=== PATIENT | male | born 1990 | race Caucasian/White ===

== ENCOUNTER 2017-11-12 13:00 | Emergency (ER) | payer OTHER ==
[~2017-11-12] VITALS: Ht 185.4 cm; Wt 95.8 kg
[2017-11-12 13:04] VITALS: Ht 185.4 cm; Wt 95.8 kg
[2017-11-12] MEDS ORDERED: CABE0.5T PO (13:39)
[2017-11-12] MEDS ORDERED: FLUC150T63 PO (13:39)
[2017-11-12 13:40] VITALS: BP 95/69; PULSE 70; TEMP 36.6; O2SAT 94
[2017-11-12] MEDS ORDERED: VALA1TAB2 PO (13:48)
[2017-11-12] MEDS ORDERED: HYDR-5688 PO (13:48)
--- NOTE | 2017-11-12 13:50 | EMERGENCY ROOM VISIT NOTE ---
History First contact with patient: 13:08 Chief Complaint: RASH Stated Complaint: SHINGLE LIKE SYMPTOMS,PAIN,TINGLING BLISTERS History of Present Illness The patient is a 27 year old male who presents to the Emergency Room with complaints of possible shingles. The patient reports he has had a rash in the left upper back across the left chest for the past week. He was seen by his primary care provider 2 days ago and given an antifungal cream. The patient states the rash is painful and rates the discomfort a 7/10. He states he has had shingles in the past and this feels similar to when he had shingles. He denies any fevers/chills, numbness or weakness. Review of Systems A complete 10 point review of systems was reviewed with the patient with pertinent positives and negatives as per history of present illness. All else were negative. Social History Smoking Status: Never Smoker Current/Historical Medications Scheduled Cabergoline (Cabergoline), 0.5 TAB PO 2XWK Fluconazole (Diflucan), 300 MG PO WK Valacyclovir Hcl (Valtrex), 1,000 MG PO TID Scheduled PRN Hydrocodone/Acetaminophen 5MG/325MG ([employer] 5MG/325MG), 1-2 TABLET PO Q4H PRN for Pain Physical Exam Vital Signs Date Time Temp Pulse Resp B/P (MAP) Pulse Ox O2 Delivery O2 Flow Rate FiO2 11/12/17 13:40 36.6 70 18 95/69 94 Room Air 11/12/17 13:04 36.6 78 16 137/80 96 Room Air Physical Exam VITALS: Vitals are noted on the nurse's note and reviewed by myself. Vital signs stable. GENERAL: This is a 27-year-old male, in no acute distress, nondiaphoretic, well- developed well-nourished. SKIN: There are multiple vesicular lesions over the left upper back, left underarm and left upper chest. The rash does not cross the midline. HEART: Regular rate and rhythm without murmurs gallops or rubs. LUNGS: Clear to auscultation bilaterally without wheezes, rales or rhonchi. NEURO: Patient was alert and oriented to person place and time. Medical Decision & Procedures Laboratory Results Test 11/12/17 13:25 Medical Decision Differential diagnosis includes herpes zoster, folliculitis, contact dermatitis , among others. The patient is a 27-year-old male who presents today complaining of possible shingles. The rash is consistent with shingles. Viral and bacterial cultures were obtained. The patient will be treated for herpes zoster with valacyclovir. Conservative measures were discussed. He was given a prescription for pain medication. He will follow-up with his primary care provider for further evaluation and to discuss culture results. The patient verbalized understanding of my assessment and treatment plan and was discharged home in good condition. Medication Reconcilliation Current Medication List: was personally reviewed by me Blood Pressure Screening Patient's blood pressure: Normal blood pressure Impression Primary Impression: Herpes zoster Departure Information Dispostion Home / Self-Care Condition GOOD Prescriptions Hydrocodone/Acetaminophen 5MG/325MG ([employer] 5MG/325MG) Tab 1-2 TABLET PO Q4H Y for Pain, #15 TAB For Initial Treatment Prov: Mariana Elizalde PA-C 11/12/17 Valacyclovir Hcl (VALTREX) 1 Gm Tab 1000 MG PO TID for 7 Days, #21 TAB Prov: Mariana Elizalde PA-C 11/12/17 Referrals Divine Polanco M.D. (PCP) Patient Instructions My [facility] Additional Instructions Valtrex as prescribed. This is an antiviral medication that will help with the rash. For pain control, you can use the following [id number] medicines (if >12 yo): - Regular strength (325mg/tab) Tylenol (acetaminophen) 2 tabs every 4-6 hours as needed. Do not exceed 12 tablets in a 24 hour period. Avoid taking more than 4 grams (4000 mg) of Tylenol per day. This includes any other sources of acetaminophen you may take on a regular basis. - Regular strength (200 mg/tab) Advil (ibuprofen) 1-2 tabs every 4-6 hours as needed. Do not exceed a dose of 3200 mg per day. You have been prescribed [employer] to be used for pain control. Take 1-2 tablets every 4-6 hours as needed for pain. This is a narcotic medication. You cannot drive or consume alcohol while on this medicine. This medicine should only be used for pain that cannot be controlled with [id number] pain medicines. Follow-up with your primary care provider for a recheck. Return to the emergency department for any worsening or new/concerning symptoms. Problem Qualifiers Primary Impression: Herpes zoster Herpes zoster complications: without complications Qualified Codes: B02.9 - Zoster without complications
[2017-11-21 22:23] LABS: V-ZOSTER CULT ISOLATED
== END 2017-11-12 13:58 | disposition home or self-care (01) ==
LOC: C.EDB 13:02
DX: B02.9 Zoster without complications (principal)